=== PATIENT | female | born 1985 | race Caucasian/White ===

== ENCOUNTER 2017-10-19 10:20 | Emergency (ER) | payer OTHER ==
[~2017-10-19] VITALS: Ht 167.6 cm; Wt 140.7 kg
[~2017-10-19 10:20] MED LIST: CLEOCIN300 MG PO; PRENATAL VITAM1 EAC3 PO
[2017-10-19 11:15] LABS: HEMATOCRIT 39.8 % (36.0-46.0); HEMOGLOBIN 13.5 G/DL (11.9-15.5); MCH 28.7 PG (29.0-34.0); MCHC 33.9 G/DL (30.0-36.0); MCV 84.5 FL (83-99); PLATELET COUNT 272 K/uL (156-360); RBC DIS.WIDTH-CV 12.1 % (11.8-14.6); RBC DIS.WIDTH-SD 37.1 % (39-53); RED BLOOD COUNT 4.71 M/uL (3.80-5.20); WHITE BLOOD COUNT 6.2 K/uL (4.1-10.2)
[2017-10-19 11:24] LABS: APPEARANCE SL.HAZY ((CLEAR)); BILIRUBIN NEGATIVE; BLOOD NEGATIVE; COLOR YELLOW ((YELLOW)); GLUCOSE (STRIP) NEGATIVE; KETONES NEGATIVE; LEUKOCYTES SMALL; NITRITE NEGATIVE; PROTEIN (STRIP) 30; SPECIFIC GRAVITY 1.026 (1.000-1.030); UROBILINOGEN 0.2 MG/DL (0.2-1.0)
[2017-10-19 11:26] LABS: ALBUMIN 3.7 g/dL (3.2-4.8); CHLORIDE 108 mEq/L (99-109); POTASSIUM 3.6 mEq/L (3.7-5.4); SODIUM 141 mEq/L (136-147)
[2017-10-19 11:29] LABS: GLUCOSE 84 mg/dL (70-99)
[2017-10-19 11:31] LABS: TOTAL BILIRUBIN 0.4 mg/dL (0.0-1.0)
[2017-10-19 11:32] LABS: ALKALINE PHOSPHATASE 86 IU/L (3-129); CREATININE 0.8 mg/dL (0.6-1.3)
[2017-10-19 11:33] LABS: BACTERIA NONE SEEN /HPF; EPITHELIAL CELLS 1+ /HPF; MUCUS 1+ /LPF; RED BLOOD CELLS 0-5 /HPF (0-5); UCUL ADDED? NO; WHITE BLOOD CELLS 0-5 /HPF (0-5)
[2017-10-19 11:33] LABS: UREA NITROGEN (BUN) 8 mg/dL (9-23)
[2017-10-19 11:34] LABS: AST (GOT) 16 IU/L (2-34)
[2017-10-19 11:35] LABS: ALT (GPT) 12 IU/L (3-49)
[2017-10-19 11:36] LABS: LIPASE 8 U/L (1.0-51.0)
[2017-10-19 11:41] LABS: GFR ESTIMATE (CALCULATED) > 59 mL/min/
[2017-10-19 11:42] LABS: QUANTITATIVE HCG < 4.0 MIU/ML
[2017-10-19] MEDS ORDERED: TYLENOL WITH C1 EACH PO (13:14)
[2017-10-19 13:51] VITALS: BP 111/61
== END 2017-10-19 13:52 | disposition home or self-care (01) ==
LOC: EME 10:20
DX: R10.11 Right upper quadrant pain (principal); Z88.0 Allergy status to penicillin
CPT/HCPCS: 76705; 80053; 81003; 83690; 84702; 85027; 99281; 99284; J2270; J2405; J7030